=== PATIENT | male | born 1940 | race Caucasian/White ===

== ENCOUNTER 2017-11-08 08:31 | Outpatient (CLI) | payer MEDICARE | END 2017-11-08 08:32 | disposition home or self-care (01) | LOC: BICULT 08:31 | PROVIDERS: ATTEND Internal Medicine Nephrology | DX: I12.9 Hypertensive chronic kidney disease with stage 1 through stage 4 chronic kidney disease, or unspecified chronic kidney disease (principal); N18.1 Chronic kidney disease, stage 1; I25.10 Atherosclerotic heart disease of native coronary artery without angina pectoris; I73.9 Peripheral vascular disease, unspecified; R60.9 Edema, unspecified; H91.93 Unspecified hearing loss, bilateral; R30.0 Dysuria; R40.1 Stupor; R35.1 Nocturia; R31.9 Hematuria, unspecified; N13.9 Obstructive and reflux uropathy, unspecified; Z96.1 Presence of intraocular lens | CPT/HCPCS: 76700; 93976 ==

== ENCOUNTER 2018-10-23 09:43 | Outpatient (CLI) | payer MEDICARE ==
--- NOTE | 2018-10-23 11:17 | RAD ---
2 VIEWS CHEST: Date: 10/23/18 HISTORY: Mild persistent asthma. Acute exacerbation. COMPARISON: 10/17/12. FINDINGS: Atherosclerosis and elongation of aorta. Normal cardiac silhouette. Pulmonary vessels and hilum are n ormal. Blunting of the costophrenic angles, since the previous examination, may represent small effus ions versus atelectasis/scar. Chronic changes in the lung parenchyma. Lungs are hyperinflated. No pne umothorax or osseous abnormalities. IMPRESSION: 1. Chronic changes of lung parenchyma. 2. Hyperinflation. Correlate for COPD. 3. Blunting of both costophrenic angles which may be due to chronic change. Small effusions cannot b e excluded. POS: [facility]
== END 2018-10-23 09:44 | disposition home or self-care (01) ==
LOC: BICRAD 09:43
PROVIDERS: ATTEND Specialist
DX: J45.31 Mild persistent asthma with (acute) exacerbation (principal); R91.8 Other nonspecific abnormal finding of lung field
CPT/HCPCS: 71046

== ENCOUNTER 2018-12-25 12:57 | Outpatient (CLI) | payer MEDICARE ==
--- NOTE | 2018-12-25 13:37 | RAD ---
Exam: Chest 2 views: HISTORY: Dyspnea: COMPARISON: 10/23/2018 FINDINGS: Stable vertical oblique linear parenchymal changes in both bases. Heart size is upper range of normal . No confluent pneumonia, overt edema, or pleural effusion. Prominent atherosclerosis of the aorta with ectasia. IMPRESSION: Stable vertical and slightly oblique linear parenchymal changes in the lung bases. Atherosclerosis of the aorta with ectasia.
== END 2018-12-25 12:58 | disposition home or self-care (01) ==
LOC: RAD 12:57
PROVIDERS: ATTEND Internal Medicine Critical Care Medicine
DX: R06.00 Dyspnea, unspecified (principal); I70.0 Atherosclerosis of aorta; I77.819 Aortic ectasia, unspecified site
CPT/HCPCS: 71046

== ENCOUNTER 2019-03-20 13:34 | Outpatient (CLI) | payer MEDICARE | END 2019-03-20 13:35 | disposition home or self-care (01) | LOC: CP 13:34 | PROVIDERS: ATTEND Internal Medicine Critical Care Medicine | DX: J84.10 Pulmonary fibrosis, unspecified (principal) | CPT/HCPCS: 94060; 94727; 94729 ==

== ENCOUNTER 2022-07-07 18:39 | Inpatient (IN) | payer MEDICARE ==
[2022-07-07 21:42] VITALS: BMI 22.1
[2022-07-08 07:09] LABS: Hemoglobin 12.9 g/dL (14.0-18.0); Mean Corpuscular HGB CONC 31.4 g/dL (32.0-36.0); Mean Corpuscular Hemoglobin 31.3 pg (27.0-31.0); Mean Corpuscular Volume 99.6 fl (78.0-98.0); Mean Platelet Volume 7.3 fL (7.4-10.4); Platelet Count 301 10x3/uL (130-400); RBC Distribution Width 13.2 % (11.5-14.5); Red Blood Cell (RBC) Count 4.12 mill/uL (4.70-6.10); White Blood Cell (WBC) Count 22.4 10x3/uL (4.8-10.8)
[2022-07-08 07:33] LABS: ALT (SGPT) 8 U/L (8-55); AST (SGOT) 15 U/L (5-34); Albumin 3.6 g/dL (3.4-4.8); Alkaline Phosphatase 40 U/L (40-110); Anion Gap 18 mmol/L (10-20); BUN (Urea Nitrogen) 17 mg/dL (8.4-25.7); Bilirubin, Total 0.5 mg/dL (0.2-1.2); Calc. Creatinine Clearance 68 mL/min (70-130); Calcium 8.6 mg/dL (7.8-10.44); Carbon Dioxide 18 mmol/L (23-31); Chloride 109 mmol/L (98-107); Estimated GFR 87; Globulin 2.4 g/dL (2.4-3.5); Glucose 81 mg/dL (83-110); Potassium 4.3 mmol/L (3.5-5.1); Sodium 141 mmol/L (136-145)
[2022-07-08 09:03] LABS: Band 10 % (5-11); Lymphocytes 10 % (21-51); MDiff Complete? YES; Monocytes 7 % (0-10); Neutrophil 73 % (42-75); RBC Morphology Normal
[2022-07-08] MEDS: cefTRIAXone\\ROCEPHIN 1 GM in Sodium Chloride 0.9% 100 ML IVPB SCH (17:47)
[2022-07-09 07:55] LABS: #Eosinphils 0.8 thou/uL (0.0-0.7); #Lymphocytes 2.3 thou/uL (1.20-3.40); #Monocytes 1.1 thou/uL (0.11-0.59); #Neutrophils 12.6 thou/uL (1.40-6.50); %Basophils 0.1 % (0.0-1.0); %Eosinophils 4.8 % (0.0-10.0); %Lymphocytes 13.5 % (21.0-51.0); %Monocytes 6.5 % (0.0-10.0); %Neutrophils 75.1 % (42.0-75.0); Hemoglobin 12.4 g/dL (14.0-18.0); Mean Corpuscular HGB CONC 32.6 g/dL (32.0-36.0); Mean Corpuscular Volume 98.1 fl (78.0-98.0); Mean Platelet Volume 7.4 fL (7.4-10.4); Platelet Count 246 10x3/uL (130-400); RBC Distribution Width 13.1 % (11.5-14.5); Red Blood Cell (RBC) Count 3.88 mill/uL (4.70-6.10); White Blood Cell (WBC) Count 16.8 10x3/uL (4.8-10.8)
[2022-07-09 08:17] LABS: ALT (SGPT) 17 U/L (8-55); AST (SGOT) 26 U/L (5-34); Albumin 3.4 g/dL (3.4-4.8); Alkaline Phosphatase 42 U/L (40-110); Anion Gap 12 mmol/L (10-20); BUN (Urea Nitrogen) 14 mg/dL (8.4-25.7); Bilirubin, Total 0.4 mg/dL (0.2-1.2); Calc. Creatinine Clearance 81 mL/min (70-130); Calcium 8.2 mg/dL (7.8-10.44); Carbon Dioxide 23 mmol/L (23-31); Chloride 105 mmol/L (98-107); Estimated GFR 92; Globulin 2.2 g/dL (2.4-3.5); Glucose 98 mg/dL (83-110); Potassium 3.6 mmol/L (3.5-5.1); Protein, Total 5.6 g/dL (5.8-8.1); Sodium 136 mmol/L (136-145)
[2022-07-09] MEDS: cefTRIAXone\\ROCEPHIN 1 GM in Sodium Chloride 0.9% 100 ML IVPB SCH (13:37)
[2022-07-09 16:06] VITALS: BP 116/71; TEMP 98.6
== END 2022-07-09 16:25 | DRG 699 ==
LOC: T4-A 18:39 → INTOOBSV 18:39 → OBSVTOIN 07-08 14:42
PROVIDERS: ADMIT Student in an Organized Health Care Education/Training Program; ATTEND Student in an Organized Health Care Education/Training Program
DX: T83.598A Infection and inflammatory reaction due to other prosthetic device, implant and graft in urinary system, initial encounter (principal); N39.0 Urinary tract infection, site not specified; Z66 Do not resuscitate; Z20.822 Contact with and (suspected) exposure to COVID-19; J44.9 Chronic obstructive pulmonary disease, unspecified; D72.12 Drug rash with eosinophilia and systemic symptoms syndrome; R33.8 Other retention of urine; N40.1 Benign prostatic hyperplasia with lower urinary tract symptoms; Z88.1 Allergy status to other antibiotic agents; Z88.2 Allergy status to sulfonamides; Z88.8 Allergy status to other drugs, medicaments and biological substances; Z79.899 Other long term (current) drug therapy; Q54.9 Hypospadias, unspecified; Y84.6 Urinary catheterization as the cause of abnormal reaction of the patient, or of later complication, without mention of misadventure at the time of the procedure
CPT/HCPCS: 36415; 36416; 51702; 80048; 80053; 81003; 81015; 83605; 83735; 84145; 85025; 87040; 87086; 96365; 96366; 96372; 96375; 97139; G0378; J0696; J1650; J2270; J3490; U0003; U0005